=== PATIENT | female | born 1975 | race Caucasian/White ===

== ENCOUNTER → 2019-11-30 15:25 | Outpatient (CLI) | payer OTHER, SELFPAY ==
--- NOTE | ~2019-11-30 | MM_ITS ---
EXAMINATION: MM screening [facility] w attila HISTORY: Screening mammogram TECHNIQUE: Craniocaudal and mediolateral oblique 3-D tomosynthesis images were obtained and synthetic 2-D images were generated. Bilateral rotated lateral cc views. CAD analysis was submitted and interp reted. COMPARISON: No prior mammogram is available for comparison at this institution. BREAST PARENCHYMAL COMPOSITION: The breasts are heterogeneously dense, which may obscure small masses . FINDINGS: There is no evidence of suspicious mass, calcification, or architectural distortion to sugg est malignancy in either breast. There has been no suspicious interval change. IMPRESSION: 1. No mammographic evidence of malignancy. 2. Recommend routine screening mammography in one year. BI-RADS Category 1: Negative Reviewed, dictated and finalized at location A.
== END ==
PROVIDERS: Visit Provider Obstetrics & Gynecology
DX: Z12.31 Encounter for screening mammogram for malignant neoplasm of breast (principal)
CPT/HCPCS: 77063; 77067

== ENCOUNTER → 2022-05-15 14:50 | Outpatient (CLI) | payer OTHER, SELFPAY ==
--- NOTE | ~2022-05-15 | US_ITS ---
US axilla RT 05/15/2022 15:09 Indication: Palpable abnormality in the right axilla Procedure: High-resolution ultrasound of the right axilla in the area of palpable concern Comparison: No prior studies for comparison. Findings: In the area palpable concern there is an oval isoechoic mass with horizontal oriented stria tions internally measuring 3.2 x 1.1 x 2.6 cm. No significant internal vascularity. Impression: 1: Horizontal isoechoic mass with internal horizontal striations, compatible with benign lipoma measu ring 3.2 cm maximum dimension. Reviewed, dictated and finalized at location A. P CUTTER Impression: 1: Horizontal isoechoic mass with internal horizontal striations, compatible wi th benign lipoma measuring 3.2 cm maximum dimension.
== END ==
PROVIDERS: PCP Obstetrics & Gynecology; Visit Provider Obstetrics & Gynecology
DX: R22.2 Localized swelling, mass and lump, trunk (principal)
CPT/HCPCS: 76882

== ENCOUNTER → 2022-07-17 10:56 | Outpatient (CLI) | payer OTHER, SELFPAY ==
--- NOTE | ~2022-07-17 | MM_ITS ---
EXAMINATION: MM screening [facility] BI w attila HISTORY: Screening mammogram TECHNIQUE: Craniocaudal and mediolateral oblique 3-D tomosynthesis images were obtained and synthetic 2-D images were generated. CAD analysis was submitted and interpreted. COMPARISON: 11/30/2019 bilateral screening mammogram BREAST PARENCHYMAL COMPOSITION: The breasts are heterogeneously dense, which may obscure small masses . FINDINGS: There is no evidence of suspicious mass, calcification, or architectural distortion to sugg est malignancy in either breast. There has been no suspicious interval change. IMPRESSION: 1. No mammographic evidence of malignancy. 2. Recommend routine screening mammography in one year. BI-RADS Category 1: Negative Reviewed, dictated and finalized at location A.
== END ==
PROVIDERS: PCP Obstetrics & Gynecology; Visit Provider Obstetrics & Gynecology
DX: Z12.31 Encounter for screening mammogram for malignant neoplasm of breast (principal)
CPT/HCPCS: 77063; 77067

== ENCOUNTER → 2023-02-03 07:48 | Outpatient (CLI) | payer OTHER, SELFPAY ==
--- NOTE | ~2023-02-03 | US_ITS ---
US right upper quadrant INDICATION: Right upper quadrant pain with chest tightness PROCEDURE: Realtime right upper abdominal ultrasound. COMPARISON: No prior studies for comparison. FINDINGS: The pancreas is normal without focal mass or pancreatic ductal dilation. Liver echotexture is normal without focal mass or intrahepatic biliary dilatation. There is normal directional flow i n the portal vein. The bladder polyp is present measuring 3 mm. Common bile duct measures 4 mm. No sonographic Polo' s sign. IMPRESSION: 1: Gallbladder polyp measuring 3 mm. Reviewed, dictated and finalized at location B.
== END ==
PROVIDERS: PCP Obstetrics & Gynecology; Visit Provider Obstetrics & Gynecology
DX: R10.11 Right upper quadrant pain (principal); K82.4 Cholesterolosis of gallbladder
CPT/HCPCS: 76705